=== PATIENT | female | born 1960 | race Caucasian/White ===

== ENCOUNTER 2025-05-08 22:20 | Emergency (ER) | payer BC ==
--- NOTE | 2025-05-08 22:36 | ERPHSYRPT ---
- History of Present Illness Time Seen by Provider: 05/08/25 22:23 Source: patient Exam Limitations: no limitations Physician History: 64-year-old female presents to the emergency room with headache left upper extremity pain status post fall patient reports she tripped and fell prior to arrival denies losing consciousness denies being on a blood thinner denies any seizure activity denies any preceding chest pain patient reports she had some people help her get to her feet but she has been has been able to ambulate a few steps since the fall patient reports pain in her left elbow primarily now ED for further eval Occurred: just prior to arrival Reason for Fall: tripped Injuries/Pain Location: upper extremity Loss of Consciousness: no loss of consciousness Quality: aching Severity of Pain-Max: mild Severity of Pain-Current: mild Associated Symptoms (Fall): extremity injury, No abdominal pain, No back pain, No confusion, No chest pain, No headache, No lightheadedness, No shortness of breath, No slurred speech - Review of Systems Constitutional: No Fever, No Chills Eyes: No Symptoms Ears, Nose, & Throat: No Symptoms Respiratory: No Cough, No Dyspnea Cardiac: No Chest Pain, No Edema, No Syncope Abdominal/Gastrointestinal: No Abdominal Pain, No Nausea, No Vomiting, No Diarrhea Genitourinary Symptoms: No Dysuria Musculoskeletal: Fall, Joint Swelling, No Back Pain, No Neck Pain Skin: No Rash Neurological: No Dizziness, No Focal Weakness, No Sensory Changes Psychological: No Symptoms Endocrine: No Symptoms All Other Systems: Reviewed and Negative - Nursing Vital Signs Nursing Vital Signs: Initial Vital Signs Temperature 97.8 F 05/08/25 22:30 Pulse Rate 89 05/08/25 22:30 Respiratory Rate 18 05/08/25 22:30 O2 Sat by Pulse Oximetry 97 05/08/25 22:30 Pain Scale Pain Intensity 3 - [place] Coma Score Best Eye Response ([place]): (4) open spontaneously Best Verbal Response ([place]): (5) oriented Best Motor Response ([place]): (6) obeys commands Maame Total: 15 - Physical Exam General Appearance: no apparent distress, alert Head Injury: swelling (Some soft tissue swelling to the left frontal forehead) Eye Exam: PERRL/EOMI ENT Exam: airway nml Neck Exam: normal inspection, No tenderness Respiratory/Chest Exam: normal breath sounds, No chest tenderness, No respiratory distress Cardiovascular Exam: normal heart sounds, regular rate/rhythm Gastrointestinal Exam: soft, No tenderness, No distention, No guarding, No ecchymosis Back Exam: normal inspection, No vertebral tenderness Extremity Exam: normal inspection, pelvis stable, tenderness (Left elbow no obvious deformity neurovascular intact), No deformities Neurologic Exam: alert, oriented x 3, cooperative, sensation nml, No motor deficits Skin Exam: normal color, warm, dry - Course Nursing assessment & vital signs reviewed: Yes - Radiology Exams Left Shoulder X-ray Interpretation: Interpreted by me, Negative, No Fracture Left Humerus X-ray Interpretation: Interpreted by me, Negative, No Fracture Left Elbow X-ray Interpretation: Interpreted by me, Negative, No Fracture Left Forearm X-ray Interpretation: Interpreted by me, Negative, No Fracture Left Ribs X-ray Interpretation: Interpreted by me, No Pneumothorax, Non-displaced Fracture Ordered Tests: Active Orders 24 hr Category Date Time Status CERVICAL SPINE WO CONTRAST [CT] Stat Exams 05/08/25 22:33 Completed ELBOW (MINIMUM 3 VIEWS) Stat Exams 05/08/25 22:33 Taken FOREARM Stat Exams 05/08/25 22:34 Taken HEAD WITHOUT CONTRAST [CT] Stat Exams 05/08/25 22:33 Completed HUMERUS Stat Exams 05/08/25 22:33 Taken RIBS UNILATERAL Stat Exams 05/08/25 22:33 Taken Incentive Spirometry STAT RT 05/08/25 23:20 Active Medication Summary Discontinued Medications Generic Name Dose Route Start Last Admin Trade Name Aldairq PRN Reason Stop Dose Admin Acetaminophen 650 mg 05/08/25 22:33 05/08/25 22:39 Acetaminophen 325 Mg Tablet PO 05/08/25 22:34 650 mg STAT STA Administration Acetaminophen Confirm 05/08/25 22:39 Acetaminophen 325 Mg Tablet Administered 05/08/25 22:40 Dose 650 mg .ROUTE .[employer] ONE - Progress Progress Note: 05/09/25 00:06 Patient was given incentive spirometer for concern for rib fracture patient's x- ray of the humerus elbow and forearm appear within normal limits without evidence of fracture pending CT head and neck at this time 05/09/25 00:[address] shows 1. No acute intracranial traumatic injury detected 2. Chronic microvascular ischemic changes and senile cortical atrophy 3. Hyperostosis frontalis interna 05/09/25 00:[address] shows no acute fracture or dislocation diffuse osteopenia spondylodegenerative changes - Departure Departure Disposition: Home Clinical Impression: Rib fracture Qualifiers: Encounter type: initial encounter Rib fracture type: single rib Fracture type: closed Laterality: left Qualified Code(s): S22.32XA - Fracture of one rib, left side, initial encounter for closed fracture Fall Qualifiers: Encounter type: initial encounter Qualified Code(s): W19.XXXA - Unspecified fall, initial encounter Elbow contusion Qualifiers: Encounter type: initial encounter Laterality: left Qualified Code(s): S50.02XA - Contusion of left elbow, initial encounter Scalp contusion Qualifiers: Encounter type: initial encounter Qualified Code(s): S00.03XA - Contusion of scalp, initial encounter Condition: Stable Critical Care Time: No Referrals: Provider,Unknown [Primary Care Provider, UNKNOWN] - Follow up/PCP as directed Instructions: Rib injury in adults, Contusion (DC), Preventing falls in adults, Rib fracture or bruised rib - ED discharge instructions, Minor head injury in adults - ED discharge instructions
[2025-05-08] MEDS ORDERED: TYLENOL 325 MG ONE (22:39)
[2025-05-08] MEDS: TYLENOL 325 MG PO STA (22:39)
[2025-05-08 22:43] VITALS: TEMP 97.8
[2025-05-09 00:07] VITALS: PULSE 85
--- NOTE | 2025-05-09 00:20 | XRAY ---
CLINICAL HISTORY: fall COMPARISON: None. TECHNIQUE: Axial non-contrast CT scan of the brain was performed from the skull base to the high parietal region .One of the following dose reduction techniques were utilized for this exam: Automated exposure control, adjustment of the mA and/or kV according to patient size, use of iterative reconstruction. FINDINGS: Brain Parenchyma: There are ill-defined iso-to hypodense areas in the subcortical and periventricular white matter bilaterally, representing chronic microvascular ischemic changes. The rest of visualized brain parenchyma shows normal appearance. No intracerebral or extra axial hematoma. Ventricular System: Prominent ventricular system. Subarachnoid Spaces: The cortical sulci and basal cisterns are prominent, consistent with senile changes. Cerebellum and Brainstem: No masses, lesions, or areas of abnormal density. Orbits: Normal appearance of the globes, optic nerves, and extraocular muscles. No evidence of orbital masses or abnormal density. Visualised Paranasal sinuses: Mild polypoidal mucosal thickening in right maxillary sinus with minimal mucosal thickening in left maxillary sinus. Right inferior turbinate hypertrophy. Mastoid Air Cells: Clear mastoid air cells. Skull and soft tissue: Hyperostosis frontalis interna noted. IMPRESSION: 1. No acute intracranial traumatic injury detected 2. Chronic microvascular ischemic changes and senile cortical atrophy 3. Hyperostosis frontalis interna Electronically Signed by: Alok Shelton MD. (05/09/2025 00:19:49 EDT)
--- NOTE | 2025-05-09 00:42 | XRAY ---
CLINICAL HISTORY: fall COMPARISON: None. TECHNIQUE: CT scan of the cervical spine was performed without the administration of intravenous contrast. Contiguous axial images were obtained from the skull base to the upper thoracic spine. Coronal and sagittal reformatted images were also reviewed. One of the following dose reduction techniques was utilized for this exam. Automated exposure control, adjustment of the mA and/or kV according to patient size, and use of iterative reconstruction. FINDINGS: No acute fracture or dislocation Average sagittal diameter of the cervical canal. Spondylodegenerative changes with tractional osteophytoses and loss of height of the scanned discs most appreciated C5/C6 disc spaces. Multi-level disc herniation/bulge milldy effacing the anterior subarachnoid space and just abutting the corresponding aspect of the cord, partially encroaching upon the neural foramina Mild facet and neurocentral joint osteoarthritic changes are most appreciated at lower cervical levels No abnormal paravertebral soft tissue masses are seen. Atlantoaxial mild osteoarthritic changes. Upper throcic spine ossification of the supraspinous ligament. Prevertebral Soft Tissues: The prevertebral soft tissues are normal in thickness without evidence of mass or abnormal fluid collection. Additional Findings: Enlarged left thyroid lobe IMPRESSION: 1. No acute fracture or dislocation. 2. Diffuse osteopenia. 3. Spondylodegenerative changes, further assessment by MRI is advised if clinically warrented. Electronically Signed by: Alok Shelton MD. (05/09/2025 00:40:53 EDT)
[2025-05-09 00:57] VITALS: BP 108/77; RESP 17; O2SAT 99
--- NOTE | 2025-05-09 07:54 | XRAY ---
Indication: Pain following fall. Comparison: None 3 view left elbow demonstrates osteopenia. No acute bony, articular, or soft tissue abnormalities.
--- NOTE | 2025-05-09 07:55 | XRAY ---
Indication: Pain following fall. Comparison: None 2 view left forearm demonstrates osteopenia. No acute bony, articular, or soft tissue abnormalities.
--- NOTE | 2025-05-09 07:57 | XRAY ---
Indication: Pain following fall. Comparison: None 2 view left humerus demonstrates osteopenia, tiny spurring lateral humeral head, and mild acromioclavicular degenerative arthropathy. No acute bony, articular, or soft tissue abnormalities.
--- NOTE | 2025-05-09 07:59 | XRAY ---
Indication: Pain following fall. Comparison: None 2 view left ribs demonstrates osteopenia, mild multilevel degenerative spondylosis, T12/L3 vertebroplasty, mild left shoulder degenerative arthropathy, left lung calcified granuloma, and right abdomen surgical clips. No acute bony, articular, or soft tissue abnormalities.
== END 2025-05-09 00:50 | disposition home or self-care (01) ==
LOC: ED 22:20
DX: S22.32XA Fracture of one rib, left side, initial encounter for closed fracture (principal); S50.02XA Contusion of left elbow, initial encounter; S00.03XA Contusion of scalp, initial encounter; W10.1XXA Fall (on)(from) sidewalk curb, initial encounter; Y93.K1 Activity, walking an animal